=== PATIENT | female | born 1955 | race African-American/Black ===

== ENCOUNTER 2021-01-27 09:49 | Emergency (ER) | payer SELFPAY ==
[~2021-01-27 09:49] MED LIST: NORCO 7.5-3251 EACH PO; NORVASC 5 MG TAB5 MG PO
[2021-01-27 11:25] LABS: HEMOGLOBIN 14.2 gm/dl (12.3-15.3); RED BLOOD COUNT 5.06 M/UL (4.00-5.10); WHITE BLOOD COUNT 6.7 K/UL (4.5-11.0)
[2021-01-27 12:53] LABS: BUN/CREATININE RATIO 12 (0-10)
== END 2021-01-27 13:12 | disposition home or self-care (01) ==
LOC: ER1 09:49
PROVIDERS: Nurse Practitioner
DX: S06.9X9A Unspecified intracranial injury with loss of consciousness of unspecified duration, initial encounter (principal); S80.02XA Contusion of left knee, initial encounter; S80.01XA Contusion of right knee, initial encounter; S00.83XA Contusion of other part of head, initial encounter; M17.11 Unilateral primary osteoarthritis, right knee; I10 Essential (primary) hypertension; W01.0XXA Fall on same level from slipping, tripping and stumbling without subsequent striking against object, initial encounter; Y92.69 Other specified industrial and construction area as the place of occurrence of the external cause
CPT/HCPCS: 70450; 73564; 80053; 81001; 85025; 93005; 96374; 96375; 99284; J2270

== ENCOUNTER 2021-02-12 20:55 | Emergency (ER) | payer BC ==
[2021-02-12 22:01] LABS: HEMOGLOBIN 13.4 gm/dl (12.3-15.3); RED BLOOD COUNT 4.79 M/UL (4.00-5.10); WHITE BLOOD COUNT 17.7 K/UL (4.5-11.0)
[2021-02-13] MEDS ORDERED: OMNICEF 300 MG300 MG PO (00:21)
== END 2021-02-13 01:27 | disposition home or self-care (01) ==
LOC: ER1 20:55
PROVIDERS: Internal Medicine
DX: N39.0 Urinary tract infection, site not specified (principal); I10 Essential (primary) hypertension; Z20.822 Contact with and (suspected) exposure to COVID-19
CPT/HCPCS: 0240U; 71046; 80053; 81001; 83605; 85025; 87040; 96374; 99285; J0696

== ENCOUNTER → 2021-02-20 | Outpatient (CLI) | payer BC ==
[~2021-02-20] MED LIST changes: +OMNICEF 300 MG300 MG PO
== END ==
LOC: MAMO 14:19
DX: Z12.31 Encounter for screening mammogram for malignant neoplasm of breast (principal); N64.89 Other specified disorders of breast
CPT/HCPCS: 77063; 77067

== ENCOUNTER → 2021-04-03 | Outpatient (CLI) | payer BC | LOC: US 10:30 → MAMO 14:30 | DX: R92.8 Other abnormal and inconclusive findings on diagnostic imaging of breast (principal) | CPT/HCPCS: 76641-RT; 77065; G0279 ==

== ENCOUNTER → 2021-07-14 | Outpatient (CLI) | payer BC | LOC: KOH-I 12:38 | DX: N18.32 Chronic kidney disease, stage 3b (principal) | CPT/HCPCS: 76775 ==